=== PATIENT | male | born 1950 | race Hispanic/Latino ===

== ENCOUNTER 2017-05-15 16:22 | Emergency (ER) | payer MEDICARE, OTHER ==
[2017-05-15] MEDS ORDERED: DELTASONE PO ONE (22:58)
[2017-05-15] MEDS ORDERED: PEPCID PO ONE (23:02)
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
[2017-05-16 02:21] VITALS: BP 151/94
== END 2017-05-15 23:21 | disposition home or self-care (01) ==
LOC: ED 16:22
DX: L23.7 Allergic contact dermatitis due to plants, except food (principal); I10 Essential (primary) hypertension; E11.9 Type 2 diabetes mellitus without complications
CPT/HCPCS: 99282; J7512